=== PATIENT | female | born 1970 | race Caucasian/White ===

== ENCOUNTER 2020-12-26 09:13 | Outpatient (CLI) | payer OTHER, SELFPAY ==
--- NOTE | ~2020-12-26 | MM_ITS ---
EXAMINATION: MM screening antoni BI w braxton HISTORY: Screening mammogram TECHNIQUE: Craniocaudal and mediolateral oblique 3-D tomosynthesis images were obtained and synthetic 2-D images were generated. CAD analysis was submitted and interpreted. COMPARISON: 04/06/2019, 08/06/2017, 09/25/2015 bilateral digital screening mammogram examinations BREAST PARENCHYMAL COMPOSITION: There are scattered areas of fibroglandular density. FINDINGS: There is no evidence of suspicious mass, calcification, or architectural distortion to sugg est malignancy in either breast. There has been no suspicious interval change. IMPRESSION: 1. No mammographic evidence of malignancy. 2. Recommend routine screening mammography in one year. BI-RADS Category 1: Negative Reviewed, dictated and finalized at location A.
== END 2020-12-26 09:14 | disposition home or self-care (01) ==
LOC: ANHIMG 09:17
PROVIDERS: PCP Nurse Practitioner Adult Health; Visit Provider Physician Assistant
DX: Z12.31 Encounter for screening mammogram for malignant neoplasm of breast (principal)
CPT/HCPCS: 77063; 77067

== ENCOUNTER → 2021-01-01 08:37 | Outpatient (REF) | payer OTHER, SELFPAY | LOC: ANHLAB 08:37 | PROVIDERS: PCP Nurse Practitioner Adult Health; Visit Provider Nurse Practitioner | DX: R22.9 Localized swelling, mass and lump, unspecified (principal) | CPT/HCPCS: 87070; 87075; 87205; 88304 ==

== ENCOUNTER → 2021-06-27 09:21 | Outpatient (CLI) | payer OTHER, SELFPAY ==
[2021-06-27 18:23] LABS: SARS-CoV-2 RNA PCR Positive
== END ==
PROVIDERS: PCP Nurse Practitioner Adult Health; Visit Provider Nurse Practitioner Adult Health
DX: U07.1 COVID-19 (principal)
CPT/HCPCS: C9803; U0003; U0005

== ENCOUNTER 2022-09-11 09:22 | Outpatient (CLI) | payer OTHER, SELFPAY ==
--- NOTE | ~2022-09-11 | MM_ITS ---
EXAMINATION: MM screening antoni BI w braxton HISTORY: Screening mammogram TECHNIQUE: Craniocaudal and mediolateral oblique 3-D tomosynthesis images were obtained and synthetic 2-D images were generated. CAD analysis was submitted and interpreted. COMPARISON: 12/26/2020, 04/06/2019, 08/06/2017 bilateral screening mammogram examinations BREAST PARENCHYMAL COMPOSITION: There are scattered areas of fibroglandular density. FINDINGS: There is no evidence of suspicious mass, calcification, or architectural distortion to sugg est malignancy in either breast. There has been no suspicious interval change. IMPRESSION: 1. No mammographic evidence of malignancy. 2. Recommend routine screening mammography in one year. BI-RADS Category 1: Reviewed, dictated and finalized at location A.
== END 2022-09-11 09:23 | disposition home or self-care (01) ==
PROVIDERS: PCP Nurse Practitioner Adult Health; Visit Provider Nurse Practitioner Family
DX: Z12.31 Encounter for screening mammogram for malignant neoplasm of breast (principal)
CPT/HCPCS: 77063; 77067

== ENCOUNTER 2023-01-13 14:23 | Outpatient (CLI) | payer OTHER, SELFPAY ==
--- NOTE | ~2023-01-13 | MR_ITS ---
EXAMINATION: MR lumbar spine wo con DATE: 01/13/2023 15:00 INDICATION: Lumbar radiculopathy TECHNIQUE: Magnetic resonance imaging (MRI) of the lumbar spine was performed without intravenous con trast. Sequences included sagittal T2-weighted FSE, sagittal T2-weighted FS FSE, sagittal T1-weighted FSE, and axial T2-weighted FSE. COMPARISON: None FINDINGS: Alignment is normal. Vertebral body heights are normal. Normal marrow signal. Annular fissure and mi nimal disc height loss at L4-L5. The conus medullaris terminates at L1-L2. There is normal signal in the caudal spinal cord. Paravertebral soft tissues are unremarkable. The following disc levels are sp ecifically discussed: T12-L1: The disc does not extend beyond the endplate margin. There is mild right facet joint osteoart hritis. There is no neural foraminal stenosis. There is no central canal stenosis. L1-L2: The disc does not extend beyond the endplate margin. There is mild bilateral facet joint osteo arthritis. There is no neural foraminal stenosis. There is no central canal stenosis. L2-L3: Disc is mildly bulging. There is moderate bilateral facet joint osteoarthritis. There is mild bilateral neural foraminal stenosis. There is no central canal stenosis. L3-L4: Disc is mildly bulging. There is moderate bilateral facet joint osteoarthritis. There is mild bilateral neural foraminal stenosis. There is no central canal stenosis. L4-L5: Disc is mildly bulging. There is severe bilateral facet joint osteoarthritis. This includes a 9 x 8 x 5 mm synovial cyst arising from the medial aspect of the right facet joint and 12 x 5 x 4 mm) of the medial side of the left facet joint. There is mild to moderate neural foraminal stenosis. The re is moderate central canal stenosis due in part to mass effect from the right-sided synovial cyst. A synovial cyst also contributes to narrowing of the lateral recesses, left greater than right. L5-S1: Disc is mildly bulging. There is moderate right and severe left facet joint osteoarthritis. Th ere is mild bilateral neural foraminal stenosis. There is no central canal stenosis. IMPRESSION: 1. Mild lumbar spondylosis most notable for severe bilateral facet osteoarthritis with associated syn ovial cysts at L4-L5 which contributes to moderate central canal stenosis and narrowing of the latera l recesses, left greater than right. Reviewed, dictated and finalized at location A. IMPRESSION: 1. Mild lumbar spondylosis most notable for severe bilateral facet osteoarthrit is with associated synovial cysts at L4-L5 which contributes to moderate centra l canal stenosis and narrowing of the lateral recesses, left greater than right .
== END 2023-01-13 14:24 ==
LOC: MICIMG 14:24
PROVIDERS: PCP Nurse Practitioner Family
DX: M47.26 Other spondylosis with radiculopathy, lumbar region (principal)
CPT/HCPCS: 72148

== ENCOUNTER 2023-10-08 16:20 | Outpatient (CLI) | payer OTHER, SELFPAY ==
--- NOTE | ~2023-10-08 | MM_ITS ---
EXAMINATION: MM screening antoni BI w braxton HISTORY: Screening mammogram TECHNIQUE: Craniocaudal and mediolateral oblique 3-D tomosynthesis images were obtained and synthetic 2-D images were generated. CAD analysis was submitted and interpreted. COMPARISON: September 11, 2022, December 26, 2020 bilateral screening mammogram examinations BREAST PARENCHYMAL COMPOSITION: There are scattered areas of fibroglandular density. FINDINGS: There is no evidence of suspicious mass, calcification, or architectural distortion to sugg est malignancy in either breast. There has been no suspicious interval change. IMPRESSION: 1. No mammographic evidence of malignancy. 2. Recommend routine screening mammography in one year. BI-RADS Category 1: Negative Reviewed, dictated and finalized at location B.
== END 2023-10-08 16:21 | disposition home or self-care (01) ==
PROVIDERS: PCP Nurse Practitioner Adult Health; Visit Provider Nurse Practitioner Adult Health
DX: Z12.31 Encounter for screening mammogram for malignant neoplasm of breast (principal)
CPT/HCPCS: 77063; 77067

== ENCOUNTER 2024-04-12 12:50 | Outpatient (CLI) | payer OTHER, SELFPAY ==
[2024-04-12 19:06] LABS: Add Urine Microscopic? NO; Appearance Urine Clear (Clear); Bilirubin Urine Negative (Negative); Blood Urine Negative (Negative); Color Urine Yellow (Yellow); Glucose Urine UA Negative (Negative); Ketones Urine Negative (Negative); Leukocyte Esterase Ur Negative LEU/UL (Negative); Nitrate Urine Negative (Negative); Protein Urine Negative (Negative); Specific Grav Ur 1.018 (1.001-1.035); Urobilinogen Urine 0.2 mg/dL (<2.0)
== END 2024-04-12 12:51 | disposition home or self-care (01) ==
PROVIDERS: PCP Nurse Practitioner Adult Health; Visit Provider Nurse Practitioner Adult Health
DX: R39.9 Unspecified symptoms and signs involving the genitourinary system (principal)
CPT/HCPCS: 81003; 87086

== ENCOUNTER 2025-02-07 11:44 | Outpatient (CLI) | payer OTHER, SELFPAY ==
--- NOTE | ~2025-02-07 | MM_ITS ---
EXAMINATION: MM screening antoni BI w bratxon HISTORY: Screening TECHNIQUE: Craniocaudal and mediolateral oblique 3-D tomosynthesis images were obtained and synthetic 2-D images were generated. CAD analysis was submitted and interpreted. COMPARISON: Comparison to multiple prior studies sequentially, with oldest reviewed study dated , 09/25/2015 BREAST PARENCHYMAL COMPOSITION: There are scattered areas of fibroglandular density. FINDINGS: There is no evidence of suspicious mass, calcification, or architectural distortion to suggest malignancy in either breast. IMPRESSION: 1. No mammographic evidence of malignancy. 2. Recommend routine screening mammography in one year. BI-RADS Category 1: Negative Reviewed, dictated and finalized at location B.
--- OUTSIDE RECORDS SUMMARY | 2025-02-07 13:30 | XMS_ITS | Encounter Summary ---
Author Organization [employer] Address [address] [place] [address] Care Team Providers Care Consumer Credit Counselor Name Role Phone Juli Acuna MD Primary Care Provider +1- [phone] Encounter Details Date Type Department Care Team (Late st Contact Info) Description 04/08/2006 Outpatient [facility] Division of Neurology [address] [address] [address] Nu Whitley MD [address] [facility] [address] [place] [address] Social History Tobacco Use Types Packs/Day Years Used Date Smoking Tobacco: Never Assessed Comments Unknown Sex and Gender Information Value Date Recorded Sex Assigned at Not on file 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
--- OUTSIDE RECORDS SUMMARY | 2025-02-07 13:30 | XMS_ITS | Encounter Summary ---
Author Organization [employer] Address [address] [place] [address] Care Team Providers Care Insurance Claims Assistant Name Role Phone Juli Acuna MD Primary Care Provider +1- [phone] Encounter Details Date Type Department Care Team (Late st Contact Info) Description 01/24/2000 Outpatient Historical Division [facility] Neurology [address] [facility] [address] [address] Nu Whitley MD [address] [facility] [address] [place] [address] Social History Tobacco Use Types Packs/Day Years Used Date Smoking Tobacco: Never Assessed Comments Unknown Sex and Gender Information Value Date Recorded Sex Assigned at Not on file 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
--- OUTSIDE RECORDS SUMMARY | 2025-02-07 13:30 | XMS_ITS | Encounter Summary ---
Author Organization [facility] Address [address] [place] [address] Care Team Providers Care Senior Windows Administrator Name Role Phone Juli Acuna MD Primary Care Provider +1- [phone] Reason for Visit * Reason Comments Medication Refill Encounter Details Date Type Department Care Team (Late st Contact Info) Description 04/07/2019 Refill [facility] NEUROLOGY [facility] [address] [address] [facility] [address] [place] [address] Cedric Rowley MD [address] [facility] [address] [place] [address] Multiple sclerosis (CMS/HCC) Social History Tobacco Use Types Packs/Day Years Used Date Smoking Tobacco: Never Smokeless Tobacco: Never Alcohol Use Standard Drinks/Week Comments Yes 0 (1 standard drink = 0.6 oz pur e alcohol) Comments No Sex and Gender Information Value Date Recorded Sex Assigned at Not on file 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
--- OUTSIDE RECORDS SUMMARY | 2025-02-07 13:30 | XMS_ITS | Encounter Summary ---
Author Organization [employer] Address [address] [place] [address] Care Team Providers Care Warper Creeler Name Role Phone Juli Acuna MD Primary Care Provider +1- [phone] Encounter Details Date Type Department Care Team (Late st Contact Info) Description 08/29/2003 Outpatient [facility] Division of Neurology [address] [address] Nu Whitley MD [address] [facility] [address] [place] [address] Social History Tobacco Use Types Packs/Day Years Used Date Smoking Tobacco: Never Assessed Comments Unknown Sex and Gender Information Value Date Recorded Sex Assigned at Not on file 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
--- OUTSIDE RECORDS SUMMARY | 2025-02-07 13:30 | XMS_ITS | Encounter Summary ---
Author Organization [facility] Address [address] [place] [address] Care Team Providers Care Medical Technologist Microbiology Name Role Phone Juli Acuna MD Primary Care Provider +1- [phone] Encounter Details Date Type Department Care Team (Latest Contact Info) Description 06/17/1999 Outpatient Historical [facility] Whitley, Nu Toure MD [address] [facility] [address] [place] [address] Multiple sclerosis (CMS/HCC) (Primary Dx) Social History Tobacco Use Types Packs/Day Years Used Date Smoking Tobacco: Never Assessed Comments Unknown Sex and Gender Information Value Date Recorded Sex Assigned at Not on file 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
--- OUTSIDE RECORDS SUMMARY | 2025-02-07 13:30 | XMS_ITS | Encounter Summary ---
Author Organization [employer] Address [address] [place] [address] Care Team Providers Care Matrix Inspector Name Role Phone Juli Acuna MD Primary Care Provider +1- [phone] Encounter Details Date Type Department Care Team (Late st Contact Info) Description 07/03/2004 Outpatient [facility] Division of Neurology [address] [facility] [address] [address] Nu Whitley MD [address] [facility] [address] [place] [address] Social History Tobacco Use Types Packs/Day Years Used Date Smoking Tobacco: Never Assessed Comments Unknown Sex and Gender Information Value Date Recorded Sex Assigned at Not on file 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 [address] [place] [phone] PCP - General 05/18/15 documented as of this encounter
--- OUTSIDE RECORDS SUMMARY | 2025-02-07 13:30 | XMS_ITS | Encounter Summary ---
Author Organization [facility] Address [address] [place] [address] Care Team Providers Care Spd Manager Name Role Phone Juli Acuna MD Primary Care Provider +1- [phone] Encounter Details Date Type Department Care Team (Latest Contact Info) Description 08/29/2003 Outpatient Historical HIS [facility] Whitley, Nu Toure MD [address] [facility] [address] [place] [address] MULTIPLE SCLEROSIS (CMS/HCC) (Primary Dx) Social History Tobacco Use Types Packs/Day Years Used Date Smoking Tobacco: Never Assessed Comments Unknown Sex and Gender Information Value Date Recorded Sex Assigned at Not on file 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
--- OUTSIDE RECORDS SUMMARY | 2025-02-07 13:30 | XMS_ITS | Encounter Summary ---
Author Organization [facility] Address [address] [place] [address] Care Team Providers Care Photography Intern Name Role Phone Juli Acuna MD Primary Care Provider +1- [phone] Encounter Details Date Type Department Care Team (Latest Contact Info) Description 04/06/2008 Outpatient Historical HIS [facility] Whitley, Nu Toure MD [address] [facility] [address] [place] [address] Multiple Sclerosis (CMS/[facility]) Social History Tobacco Use Types Packs/Day Years Used Date Smoking Tobacco: Never Assessed Comments Unknown Sex and Gender Information Value Date Recorded Sex Assigned at Not on file Legal Sex Female 2:52 AM BINDING STITCHER Gender Identity Not on file Sexual Orientation Not on file documented as of this encounter Plan of Treatment Not on file documented as of this encounter Procedures Procedure Name Priority Date/Time Associated Diagnosis Comments CBC WITH DIFFERENTIAL Routine 04/06/2008 3:12 PM BINDING STITCHER COMPREHENSIVE METABOLIC PANEL Routine 04/06/2008 3:12 PM BINDING STITCHER documented in this encounter Results * COMPREHENSIVE METABOLIC PANEL (04/06/2008 3:12 PM BINDING STITCHER) TOTAL PROTEIN 7.7 6.3 - 8.6 g/dL [facility] POTASSIUM 4.1 3.5 - 4.9 mmol/L [facility] Comment: Moderate hemolysis present. Can cause significant falsely elevated result. Clinical judgement necessary. Redraw if indicated. GLUCOSE 87 65 - 99 mg/dL [facility] AST 23 12 - 32 U/L [facility] Comment: Hemolyzed: Result may be falsely elevated. BUN 15 6 - 20 mg/dL [facility] CALCIUM 9.6 8.6 - 10.2 mg/dL [facility] CHLORIDE 103 96 - 108 mmol/L [facility] ALBUMIN 4.6 3.4 - 4.8 g/dL [facility] CREATININE 0.55 0.51 - 0.95 mg/dL [facility] SODIUM 139 135 - 145 mmol/L [facility] ALT 16 0 - 31 U/L [facility] ALKALINE PHOSPHATASE 82 35 - 104 U/L [facility] BILIRUBIN TOTAL 0.5 0.2 - 1.0 mg/dL [facility] CO2 24 22 - 30 mmol/L [facility] GFR, >60 >=60 mL/min/1.7 sq meter [facility] GFR >60 >=60 mL/min/1.7 sq meter [facility] Comment: Modification of Diet in Renal Disease (MDRD) study formula. Estimated GFR rate interpretative information for both Americans and non- Americans is available on the [facility] at: [email or web address] Select: Lab Policies and Procedures Select: Reference Ranges - GFR Blood specimen (specimen) 04/06/2008 3:12 PM BINDING STITCHER 04/06/2008 3:41 PM BINDING STITCHER us Nu Whitley MD CHEMISTRY ORDERABLES Edited INTERFACE SYSTEM Refer to clinic/hospital department [facility] CLIA# [id number] [address] [facility] [place] [address] * (ABNORMAL) CBC WITH DIFFERENTIAL (04/06/2008 3:12 PM BINDING STITCHER) MPV 12.6(H) 9.3 - 12.4 fL [facility] HEMATOCRIT 40.0 35.5 - 44.0 % [facility] RDW-STDEV 42.0 37.1 - 48.7 fL [facility] RBC 4.69 3.90 - 4.90 M/uL [facility] MCHC 34.3 31.5 - 35.5 % [facility] MCV 85.3 82.0 - 99.0 fL [facility] PLATELETS 185 140 - 350 K/uL [facility] HEMOGLOBIN 13.7 11.8 - 14.8 g/dL [facility] RDW 13.7 11.5 - 14.5 % [facility] WBC 7.0 4.0 - 9.8 K/uL [facility] MCH 29.2 27.2 - 32.6 pg [facility] NEUTROPHIL ABSOLUTE 5.34 1.90 - 7.00 K/uL [facility] EOSINOPHILS 0 0 - 7 % [facility] EOSINOPHIL ABSOLUTE 0.02 0.00 - 0.70 K/uL [facility] LYMPHOCYTES 16 16 - 45 % [facility] LYMPHOCYTE ABSOLUTE 1.14 0.70 - 4.50 K/uL [facility] BASOPHILS 0 0 - 2 % [facility] BASOPHILS ABSOLUTE 0.02 0.00 - 0.20 K/uL [facility] MONOCYTES 6 3 - 13 % [facility] MONOCYTE ABSOLUTE 0.43 0.10 - 1.30 K/uL [facility] NEUTROPHILS 77(H) 45 - 70 % [facility] Blood specimen (specimen) 04/06/2008 3:12 PM BINDING STITCHER 04/06/2008 3:40 PM BINDING STITCHER us Nu Whitley MD HEMATOLOGY ORDERABLES Edited INTERFACE SYSTEM Refer to clinic/hospital department [facility] CLIA# [id number] [address] [place] [address] documented in this encounter Visit Diagnoses Diagnosis Multiple sclerosis (CMS/HCC) Multiple sclerosis documented in this encounter Care Teams Photography Intern Relationship Specialty Start Date End Date Juli Acuna MD [address] [address] PCP - General 05/18/15 documented as of this encounter
--- OUTSIDE RECORDS SUMMARY | 2025-02-07 13:30 | XMS_ITS | Encounter Summary ---
Author Organization [employer] Address [address] [place] [address] Care Team Providers Care Die Technician Name Role Phone Juli Acuna MD Primary Care Provider +1- [phone] Encounter Details Date Type Department Care Team (Late st Contact Info) Description 01/26/2001 Outpatient [facility] Division of Neurology [address] [facility] [place] [facility] [address] [address] Nu Whitley MD [address] [facility] [address] [place] [address] Social History Tobacco Use Types Packs/Day Years Used Date Smoking Tobacco: Never Assessed Comments Unknown Sex and Gender Information Value Date Recorded Sex Assigned at Not on file 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
--- OUTSIDE RECORDS SUMMARY | 2025-02-07 13:30 | XMS_ITS | Clinical Summary ---
Author Organization [facility] Address [address] [place] [address] Care Team Providers Care Fitness Sales Consultant Name Role Phone Kera Cedeño Primary Care Provider [phone] Allergies No known active allergies Medications ALPRAZolam 0.25 MG tablet Take 0.25 mg by mouth 2 (two) times daily as needed. Active spironolactone- hydroCHLOROthia zide 25-25 MG tablet Take 1 tablet by mouth daily. 07/16/2020 Active tiZANidine 4 MG tablet Take 4 mg by mouth daily. 07/16/2020 Active sertraline 50 MG tablet Take 50 mg by mouth daily. Active phentermine 37.5 MG tablet Take 37.5 mg by mouth daily. Active oxybutynin XL 10 MG 24 hr tablet Take 10 mg by mouth daily. 04/16/2020 Active lisinopril 20 MG tablet Take 20 mg by mouth daily. 02/23/2020 Active Dalfampridine 10 MG TABLET SR 12 HR Take 10 mg by mouth daily. 09/12/2019 Active Diroximel Fumarate (VUMERITY) 231 MG CAPSULE DELAYED RELEASE Take by mouth 2 (two) times a day. 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 Betaseron: 08/1995 -08/2014 2. Plegridy: 08/2014-05/2020 3. Vumerity: 06/2020- Dyslipidemia 10/13/2016 Overview (09/05/2020): Last Assessment & Plan: Encouraged to watch diet and to increase exercise. 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 Will continue current medications and lifestyle modifications. Hypercholesterolemia 03/10/2013 Multiple sclerosis ([facility]) 2013 Overview (09/05/2020): MS Medication History RRMS DX: August 1995 1. Betaseron: 08/1995 -08/2014 2. Plegridy: 08/2014- AMPYRA start date: 01/11/2011 MS Medication History: RRMS DX: August 1995 1. Betaseron: 08/1995 -08/2014 2. Plegridy: 08/2014- present Immunizations Immunization Administration Dates Next Due MODERNA COVID-19 (12+) MRNA, LNP-S, PF, 100 MCG/ 0.5 ML DOSE 08/20/2020,07/18/2020 Family History Medical History Relation Comments No Known Problems Father Diabetes Mother Relation Status Comments Father Alive Mother Alive Social History Tobacco Use Types Packs/Day Years Used Date Smoking Tobacco: Never Passive Smoke Exposure: Past Smokeless Tobacco: Never Alcohol Use Standard Drinks/Week Comments Yes 0 (1 standard drink = 0.6 oz pur e alcohol) sociaLLY PHQ-2 Answer Date Recorded Patient Health Questionnaire-2 Score 0 07/22/2022 Comments No Sex and Gender Information Value Date Recorded Sex Assigned at Not on file Legal Sex Female 2:55 PM CDT Gender Identity Not on file Sexual Orientation Not on file Last Filed Vital Signs Vital Sign Reading Time Taken Comments Blood Pressure 116/81 07/22/2022 9:01 AM SYSTEMS ACCOUNTANT Pulse 85 07/22/2022 9:01 AM SYSTEMS ACCOUNTANT Temperature 36.9 C (98.5 F) 07/22/2022 9:01 AM SYSTEMS ACCOUNTANT Respiratory Rate 18 07/22/2022 9:01 AM SYSTEMS ACCOUNTANT Oxygen Saturation 100% 07/22/2022 9:01 AM SYSTEMS ACCOUNTANT Inhaled Oxygen Concentration - - Weight 88.5 kg (195 lb) 07/22/2022 9:01 AM SYSTEMS ACCOUNTANT Height 172.7 cm (5' 8) 07/22/2022 9:01 AM SYSTEMS ACCOUNTANT Body Mass Index 29.65 07/22/2022 9:01 AM SYSTEMS ACCOUNTANT Plan of Treatment Health Maintenance Due Date Last Done Comments Colorectal Cancer Screening Colonoscopy (10 Years) 1968 Hepatitis C 02/10/1986 DTaP, Tdap and Td Vaccines (1 - Tdap) 02/10/1987 Hepatitis B Vaccines (1 of 3 - 19+ 3-dose series) 02/10/1987 Pneumococcal Vaccine: 50+ Years (1 of 1 - PCV) 02/10/2018 Zoster Vaccines (1 of 2) 02/10/2018 Mammogram Screening 12/26/2022 12/26/2020, 2 Annual Physical 07/22/2023 07/22/2022, 09/05/2020 COVID-19 Vaccine ( season) 2025 05/02/2021, 08/20/2020, 07/18/2020 Cervical Cancer Screening Pap Smear (Age 30 to 64) Every 3 Years 07/22/2025 07/22/2022, 09/05/2020, 09/09/2018, Additional history exists Cervical Cancer Screening Pap with HPV Testing (Age 30 to 64) Every 5 Years 07/22/2027 07/22/2022, 05/01/2015, 11/16/2012 Cervical Cancer Screening with HPV 07/22/2027 Meningococcal B Vaccine Aged Out No l onger eligible based on patient's age to complete this topic Meningococcal Vaccine Aged Out No aravind sunny eligible based on patient's age to complete this topic RSV Immunizations Under 20 Months Aged Out No longer eligible based on patient's age to complete this topic Procedures Procedure Name Priority Date/Time Associated Diagnosis Comments THINPREP PAP W AGE BASED SCREENING PROTOCOLS Routine 07/22/2022 9:44 AM SYSTEMS ACCOUNTANT Cervical cancer screening MAMMOGRAM GENERIC (SCAN ORDER) 12/26/2020 from Last 3 Months or Most Recently Relevant to Health Maintenance Results * THINPREP PAP W AGE BASED SCREENING (QUEST ONLY) (07/22/2022 9:44 AM SYSTEMS ACCOUNTANT) Comment: [facility] [place] Comment: This order for age-based cervical cancer and STI screening follows ACOG guidelines(PB 168, 140, JFX444). See individual assays for performing site location. CLINICAL INFORMATION: None given [facility] [place] Clinical Information: NONE GIVEN [facility] Date of Last Pap NONE [place] Previous Biopsy? NONE [place] SOURCE (QST) Endocervix [facility] [place] STATEMENT OF ADEQUACY: [facility] [place] Comment: Satisfactory for evaluation. Endocervical/transformation zone component present. Age and/or menstrual status not provided PAP INTERPRETATION/RES ULTS Negative for intraepithelial lesion or malignancy. [place] COMMENT: This Pap test has been evaluated with computer assisted technology. [facility] [place] MINE EQUIPMENT DESIGN ENGINEER [place] Comment: MMW, CT(ASCP) CT screening location: [place] [address] [address] [place] [address] COMMENT: [facility] [place] Comment: EXPLANATORY NOTE: The Pap is a screening test for cervical cancer. It is not a diagnostic test and is subject to false negative and false positive results. It is most reliable when a satisfactory sample, regularly obtained, is submitted with relevant clinical findings and history, and when the Pap result is evaluated along with historic and current clinical information. HPV MRNA E6/E7 Not Detected Not Detected [facility] [employer] [facility] Comment: Methodology: Dock Attendant-Mediated Amplification This assay detects E6/E7 viral messenger RNA (mRNA) from 14 high-risk HPV types (16,18,31,33,35,39,45,51,52,56,58,59,66,68). Cervical sources are required for HPV testing. If a vaginal source from a patient who has had a total hysterectomy with removal of cervix was submitted, please contact the testing laboratory for alternative testing options. For additional information, please refer to http://education.Brandark/faq/XLR134y1 (This link if provided for information/ educational purposes only.) 07/22/2022 9:44 AM SYSTEMS ACCOUNTANT 07/23/2022 1:58 AM SYSTEMS ACCOUNTANT Narrative Resulting Agency Comment Performing Organization Information: Site ID: [id number] Name: [facility] Address: [facility] [place] [address] Director: Manoj Witt MD Site ID: [id number] [facility]: [facility] Address: [facility] [address] Director: Manoj Witt Kera LI PATHOLOGY/CYTOLOGY ORDERABLE S Final Result [employer] [facility] [employer] [address], [employer] [address] [place] [place], [place] [address] * MAMMOGRAM GENERIC (12/26/2020) Anatomical Region Laterality Modality Other 12/26/2020 Narrative 12/26/2020 Ordered by an unspecified provider. us Documents Scanned SCANNING Final Result from Last 3 Months or Most Recently Relevant to Health Maintenance Insurance [employer] OPEN ACCESS [facility] Care Teams Fitness Sales Consultant Relationship Specialty Start Date [place] [address] [place] [address] PCP - General PHYSICIAN INTERNET MARKETING STRATEGIST 09/05/20
--- OUTSIDE RECORDS SUMMARY | 2025-02-07 13:30 | XMS_ITS | Encounter Summary ---
Author Organization [facility] Address [address] [place] [address] Care Team Providers Care Oyster Worker Name Role Phone Juli Acuna MD Primary Care Provider +1- [phone] Encounter Details Date Type Department Care Team (Late st Contact Info) Description 2002 Outpatient Historical HIS MRI DEPT Nu Whitley MD [address] [facility] [address] [place] [phone] MULTIPLE SCLEROSIS (CMS/HCC) (Primary Dx) Social History Tobacco Use Types Packs/Day Years Used Date Smoking Tobacco: Never Assessed Comments Unknown Sex and Gender Information Value Date Recorded Sex Assigned at Not on file Legal Sex Female 2:52 AM SLEEP TECH Gender Identity Not on file Sexual Orientation Not on file documented as of this encounter Plan of Treatment Not on file documented as of this encounter Visit Diagnoses Diagnosis Multiple sclerosis (CMS/HCC)- Primary Multiple sclerosis documented in this encounter Care Teams Oyster Worker Relationship Specialty Start Date End Date Juli Acuna MD [address] [facility] [address] [place] [phone] PCP - General 05/18/15 documented as of this encounter
--- OUTSIDE RECORDS SUMMARY | 2025-02-07 13:30 | XMS_ITS | Encounter Summary ---
Author Organization [employer] [facility] Address [address] [place] [address] Care Team Providers Care Lead Developer Name Role Phone Juli Acuna MD Primary Care Provider +1- [phone] Encounter Details Date Type Department Care Team (Latest Contact Info) Description 10/10/1998 Outpatient Historical HIS [facility] Whitley, Nu Toure MD [address] [facility] [address] [place] [address] Encounter for long-term (current) use of other medications (Primary Dx) Social History Tobacco Use Types Packs/Day Years Used Date Smoking Tobacco: Never Assessed Comments Unknown Sex and Gender Information Value Date Recorded Sex Assigned at Not on file Legal Sex Female 2:52 AM BILLING COLLECTIONS SPECIALIST Gender Identity Not on file Sexual Orientation Not on file documented as of this encounter Plan of Treatment Not on file documented as of this encounter Visit Diagnoses Diagnosis Encounter for long-term (current) use of other medications- Primary documented in this encounter Care Teams Lead Developer Relationship Specialty Start Date End Date Juli Acuna MD [address] [address] [place] [phone] PCP - General 05/18/15 documented as of this encounter
--- OUTSIDE RECORDS SUMMARY | 2025-02-07 13:30 | XMS_ITS | Encounter Summary ---
Author Organization [facility] Address [address] [place] [address] Care Team Providers Care Structural Steel Worker Name Role Phone Juli Acuna MD Primary Care Provider +1- [phone] Encounter Details Date Type Department Care Team (Late st Contact Info) Description 02/26/2000 Outpatient Historical HIS [facility] Whitley, Nu Toure MD [address] [facility] [address] [place] [address] Social History Tobacco Use Types Packs/Day Years Used Date Smoking Tobacco: Never Assessed Comments Unknown Sex and Gender Information Value Date Recorded Sex Assigned at Not on file Legal Sex Female 2:52 AM 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
--- OUTSIDE RECORDS SUMMARY | 2025-02-07 13:30 | XMS_ITS | Clinical Summary ---
Author Organization [facility] Address [address] [place] [address] Phone Care Team Providers Care Telecommunication Operator Name Role Phone Juli Acuna MD Primary Care Provider +1- [phone] Allergies No known active allergies Medications lisinopril (PRINIVIL) 20 mg Oral tablet Take 20 mg by mouth daily. Active spironolacton- hydrochlorothi az (ALDACTAZIDE) 25-25 mg Oral Tab Take 1 Tab by mouth daily. Active sertraline (ZOLOFT) 50 mg tablet Take 50 mg by mouth daily. Active tiZANidine (ZANAFLEX) 4 mg TabletIndicati ons:Multiple sclerosis (CMS/HCC) Take 1 Tablet (4 mg) by mouth 3 times daily. 270 Tablet 3 8 Active diazePAM (VALIUM) 10 mg tablet Take 1 Tablet (10 mg) by mouth see administration instructions. 2 Tablet 8 Active dalfampridine (AMPYRA) 10 mg Extended Release 12 hour tabletIndicati ons:Multiple sclerosis (CMS/HCC) Take one tab (10 mg) po BID. May take with or without food. Swallow whole, Do Not Cut or Crush, Store at Room Temp. 180 Tablet 2 8 Active peginterferon beta-1a (PLEGRIDY) 125 mcg/0.5 mL Pen Injector Inject 125 mcg by subcutaneous injection every 2 weeks. 6 Syringe 8 Active ALPRAZolam (XANAX) 0.25 mg tabletIndicati ons:Multiple sclerosis (CMS/HCC) TAKE 1 TABLET BY MOUTH EVERY 6 HOURS NEEDED FOR ANXIETY. 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 Betaseron: 08/1995 -08/2014 2. Plegridy: 08/2014- AMPYRA start date: 01/11/2011 Encounters Date Type Department Care Team Description 01/03/2025 External Device Data ST[facility] ABSTRACTION Provider, Abstract 12/14/2024 External Device Data [facility] ABSTRACTION Provider, Abstract 12/14/2024 External Device Data [facility] ABSTRACTION Provider, Abstract 12/14/2024 External Device Data [facility] ABSTRACTION Provider, Abstract 11/16/2024 External Device Data [facility] ABSTRACTION Provider, Abstract from Last 3 Months Social History Tobacco Use Types Packs/Day Years Used Date Smoking Tobacco: Never Smokeless Tobacco: Never Alcohol Use Standard Drinks/Week Comments Yes 0 (1 standard drink = 0.6 oz pur e alcohol) Comments No Sex and Gender Information Value Date Recorded Sex Assigned at Not on file Legal Sex Female 2:52 AM GANG KNIFE FISH CHOPPER Gender Identity Not on file Sexual Orientation Not on file Last Filed Vital Signs Vital Sign Reading Time Taken Comments Blood Pressure 120/88 01/12/2018 12:47 PM CDT Pulse 62 01/12/2018 12:47 PM CDT Temperature - - Respiratory Rate - - Oxygen Saturation - - Inhaled Oxygen Concentration - - Weight 78.9 kg (174 lb) 01/12/2018 12:47 PM CDT Height 172.7 cm (5' 8) 01/12/2018 12:47 PM CDT Body Mass Index 26.46 01/12/2018 12:47 PM CDT Plan of Treatment Health Maintenance Due Date Last Done Comments DTAP/TDAP/TD VACCINES (1 - Tdap) 02/10/1987 HEPATITIS B VACCINES (1 of 3 - 19+ 3-dose series) 01/30 HPV/Cotest (21-29) 02/10/1989 CERVICAL CANCER SCREENING 02/10/1998 HPV/Cotest (30-65) 02/10/1998 PAP SMEAR 02/10/1998 BREAST CANCER SCREENING 2008 COLORECTAL SCREENING 02/10/2013 Colorectal Cancer Screening 02/10/2013 FIT-DNA Q 3 years 02/10/2013 FIT/FOBT Q 1 year 02/10/2013 Flex Sig/CT Colonography Q 5 years 02/10/2013 ZOSTER VACCINE (1 of 2) 02/10/2018 INFLUENZA VACCINE (#1) 2024 Insurance [employer] OPEN ACCESS [facility] OPEN ACCESS HMO Care Teams Telecommunication Operator Relationship Specialty Start Date End Date Juli Acuna MD [address] [address] [facility] - General 05/18/15
--- OUTSIDE RECORDS SUMMARY | 2025-02-07 13:30 | XMS_ITS | Encounter Summary ---
Author Organization [facility] Address [address] [place] [address] Care Team Providers Care Forms Designer Name Role Phone Juli Acuna MD Primary Care Provider +1- [phone] Encounter Details Date Type Department Care Team (Latest Contact Info) Description 04/06/2008 Outpatient Historical HIS [facility] BLDG Conversion, History Unspecified Essential Hypertension Social History Tobacco Use Types Packs/Day Years Used Date Smoking Tobacco: Never Assessed Comments Unknown Sex and Gender Information Value Date Recorded Sex Assigned at Not on file Legal Sex Female 2:52 AM HIGH SCHOOL SOCIAL STUDIES TUTOR Gender Identity Not on file Sexual Orientation Not on file documented as of this encounter Plan of Treatment Not on file documented as of this encounter Procedures Procedure Name Priority Date/Time Associated Diagnosis Comments ALDOSTERONE Routine 04/06/2008 3:14 PM HIGH SCHOOL SOCIAL STUDIES TUTOR documented in this encounter Results * ALDOSTERONE (04/06/2008 3:14 PM HIGH SCHOOL SOCIAL STUDIES TUTOR) ALDOSTERONE 1 ng/dL [facility] Comment: Adult Reference Ranges for Aldosterone, LC/MS/MS: Upright 8:00-10:00 am < or = 28 ng/dL Upright 4:00-6:00 pm < or = 21 ng/dL Supine 8:00-10:00 am 3-16 ng/dL Lab test performed by: [facility] [address] [place] [address] Volodymyr LOJA MD Blood specimen (specimen) 04/06/2008 3:14 PM HIGH SCHOOL SOCIAL STUDIES TUTOR 04/06/2008 3:41 PM HIGH SCHOOL SOCIAL STUDIES TUTOR Narrative INTERFACE SYSTEM - 04/11/2008 6:56 PM HIGH SCHOOL SOCIAL STUDIES TUTOR fax result to dr kincaid [phone] us History Conversion CHEMISTRY ORDERABLES Final Re sult INTERFACE SYSTEM Refer to clinic/hospital department [facility] CLIA# [id number] [address] [place] [address] documented in this encounter Visit Diagnoses Diagnosis Unspecified essential hypertension documented in this encounter Care Teams Forms Designer Relationship Specialty Start Date End Date Juli Acuna MD [address] [address] PCP - General 05/18/15 documented as of this encounter
--- OUTSIDE RECORDS SUMMARY | 2025-02-07 13:30 | XMS_ITS | Encounter Summary ---
Author Organization [facility] Address [address] [place] [address] Care Team Providers Care Telephonic Rn Name Role Phone Juli Acuna MD Primary Care Provider +1- [phone] Encounter Details Date Type Department Care Team (Latest Contact Info) Description 02/26/2000 Outpatient Historical HIS [facility] Whitley, Nu Toure MD [address] [facility] [address] [place] [address] Encounter for long-term (current) use of other medications (Primary Dx) Social History Tobacco Use Types Packs/Day Years Used Date Smoking Tobacco: Never Assessed Comments Unknown Sex and Gender Information Value Date Recorded Sex Assigned at Not on file Legal Sex Female 2:52 AM RESIDENTIAL SUBCONTRACTOR Gender Identity Not on file Sexual Orientation Not on file documented as of this encounter Plan of Treatment Not on file documented as of this encounter Visit Diagnoses Diagnosis Encounter for long-term (current) use of other medications- Primary documented in this encounter Care Teams Telephonic Rn Relationship Specialty Start Date End Date Juli Acuna MD [address] [address] [place] [phone] PCP - General 05/18/15 documented as of this encounter
--- OUTSIDE RECORDS SUMMARY | 2025-02-07 13:30 | XMS_ITS | Encounter Summary ---
Author Organization [facility] Address [address] [place] [address] Care Team Providers Care Director Recreation Center Name Role Phone Juli Acuna MD Primary Care Provider +1- [phone] Encounter Details Date Type Department Care Team (Late st Contact Info) Description 03/16/2007 Outpatient [facility] Division of Neurology [address] [address] [address] Nu Whitley MD [address] 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
--- OUTSIDE RECORDS SUMMARY | 2025-02-07 13:30 | XMS_ITS | Encounter Summary ---
Author Organization [facility] Address [address] [place] [address] Care Team Providers Care Antenna Design Engineer Name Role Phone Juli Acuna MD Primary Care Provider +1- [phone] Encounter Details Date Type Department Care Team (Late st Contact Info) Description 01/21/2005 Outpatient [facility] Division [facility]rology [address] [facility] [address] [address] Nu Whitley MD [address] [facility] [address] [place] [address] Social History Tobacco Use Types Packs/Day Years Used Date Smoking Tobacco: Never Assessed Comments Unknown Sex and Gender Information Value Date Recorded Sex Assigned at Not on file Legal Sex Female 2:52 AM COMPUTER SYSTEMS CONSULTANT Gender Identity Not on file Sexual Orientation Not on file documented as of this encounter Plan of Treatment Not on file documented as of this encounter Visit Diagnoses Not on filedocumented in this encounter Care Teams Antenna Design Engineer Relationship Specialty Start Date End Date Juli Acuna MD [address] [address] [place] [phone] PCP - General 05/18/15 documented as of this encounter
--- OUTSIDE RECORDS SUMMARY | 2025-02-07 13:30 | XMS_ITS | Encounter Summary ---
Author Organization [facility] [facility] Address 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
--- OUTSIDE RECORDS SUMMARY | 2025-02-07 13:30 | XMS_ITS | Encounter Summary ---
Author Organization [employer] Address [address] [place] [address] Care Team Providers Care Log Processor Operator Name Role Phone Juli Acuna MD Primary Care Provider +1- [phone] Encounter Details Date Type Department Care Team (Late st Contact Info) Description 08/06/2004 Outpatient Historical HIS MRI DEPT Nu Whitley MD [address] [facility] [address] [place] [address] MULTIPLE SCLEROSIS (CMS/HCC) (Primary Dx) Social History Tobacco Use Types Packs/Day Years Used Date Smoking Tobacco: Never Assessed Comments Unknown Sex and Gender Information Value Date Recorded Sex Assigned at Not on file Legal Sex Female 2:52 AM MOLDER SWEEP Gender Identity Not on file Sexual Orientation Not on file documented as of this encounter Plan of Treatment Not on file documented as of this encounter Visit Diagnoses Diagnosis Multiple sclerosis (CMS/HCC)- Primary Multiple sclerosis documented in this encounter Care Teams Log Processor Operator Relationship Specialty Start Date End Date Juli Acuna MD [address] [facility] [address] [place] [phone] PCP - General 05/18/15 documented as of this encounter
--- OUTSIDE RECORDS SUMMARY | 2025-02-07 13:30 | XMS_ITS | Encounter Summary ---
Author Organization [employer] Address [address] [place] [address] Care Team Providers Care Woodworking Shop Laborer Name Role Phone Juli Acuna MD Primary Care Provider +1- [phone] Encounter Details Date Type Department Care Team (Late st Contact Info) Description 2002 Outpatient [facility] Division of Neurology [address] [facility] [address] [address] Nu Whitley MD [address] [facility] [address] [place] [address] Social History Tobacco Use Types Packs/Day Years Used Date Smoking Tobacco: Never Assessed Comments Unknown Sex and Gender Information Value Date Recorded Sex Assigned at Not on file Legal Sex Female 2:52 AM ON CALL Gender Identity Not on file Sexual Orientation Not on file documented as of this encounter Plan of Treatment Not on file documented as of this encounter Visit Diagnoses Not on filedocumented in this encounter Care Teams Woodworking Shop Laborer Relationship Specialty Start Date End Date Juli Acuna MD [address] [facility] [address] [place] [phone] PCP - General 05/18/15 documented as of this encounter
--- OUTSIDE RECORDS SUMMARY | 2025-02-07 13:30 | XMS_ITS | Encounter Summary ---
Author Organization [facility] Address [address] [place] [address] Care Team Providers Care Top Collar Baster Name Role Phone Juli Acuna MD Primary Care Provider +1- [phone] Reason for Visit * Reason Comments Medication Refill Encounter Details Date Type Department Care Team (Late st Contact Info) Description 07/07/2018 Refill [facility] - [facility] [id number] [facility] [address] [place] [address] Cedric Rowley MD [address] [facility] [address] [place] [address] Multiple sclerosis (CMS/HCC) Social History Tobacco Use Types Packs/Day Years Used Date Smoking Tobacco: Never Smokeless Tobacco: Never Alcohol Use Standard Drinks/Week Comments Yes 0 (1 standard drink = 0.6 oz pur e alcohol) Comments No Sex and Gender Information Value Date Recorded Sex Assigned at Not on file Legal Sex Female 2:52 AM GROUND OPERATIONS SUPERVISOR Gender Identity Not on file Sexual Orientation Not on file documented as of this encounter Miscellaneous Notes * Telephone Encounter - Yani Jimenez - 07/07/2018 11:24 AM CST Last ov : 12/2017 ND OPERATIONS SUPERVISOR documented in this encounter Plan of Treatment Not on file documented as of this encounter Visit Diagnoses Diagnosis Multiple sclerosis (CMS/HCC) Multiple sclerosis documented in this encounter Care Teams Top Collar Baster Relationship Specialty Start Date End Date Juli Acuna MD [address] [address] PCP - General 05/18/15 documented as of this encounter
--- OUTSIDE RECORDS SUMMARY | 2025-02-07 13:30 | XMS_ITS | Encounter Summary ---
Author Organization [employer] [facility] Address [address] [place] [address] Care Team Providers Care Compliance Engineer Products Name Role Phone Juli Acuna MD Primary Care Provider +1- [phone] Encounter Details Date Type Department Care Team (Latest Contact Info) Description 05/07/1999 Outpatient Historical [facility] Whitley, Nu Toure MD [address] [facility] [address] [place] [address] Encounter for long-term (current) use of other medications (Primary Dx) Social History Tobacco Use Types Packs/Day Years Used Date Smoking Tobacco: Never Assessed Comments Unknown Sex and Gender Information Value Date Recorded Sex Assigned at Not on file Legal Sex Female 2:52 AM AVIONICS SYSTEMS TECHNICIAN Gender Identity Not on file Sexual Orientation Not on file documented as of this encounter Plan of Treatment Not on file documented as of this encounter Visit Diagnoses Diagnosis Encounter for long-term (current) use of other medications- Primary documented in this encounter Care Teams Compliance Engineer Products Relationship Specialty Start Date End Date Juli Acuna MD [address] [facility] [address] [place] [phone] PCP - General 05/18/15 documented as of this encounter
--- OUTSIDE RECORDS SUMMARY | 2025-02-07 13:30 | XMS_ITS | Encounter Summary ---
Author Organization [employer] [facility] Address [address] [place] [address] Care Team Providers Care Meal Packer Name Role Phone Juli Acuna MD Primary Care Provider +1- [phone] Encounter Details Date Type Department Care Team (Latest Contact Info) Description 07/22/2005 Outpatient Historical HIS [facility] Whitley, Nu Toure MD [address] [facility] [address] [place] [address] AFTERCARE [facility] USE MEDICATN (Primary Dx) Social History Tobacco Use Types Packs/Day Years Used Date Smoking Tobacco: Never Assessed Comments Unknown Sex and Gender Information Value Date Recorded Sex Assigned at Not on file Legal Sex Female 2:52 AM ASP WEB DEVELOPER Gender Identity Not on file Sexual Orientation Not on file documented as of this encounter Plan of Treatment Not on file documented as of this encounter Procedures Procedure Name Priority Date/Time Associated Diagnosis Comments CBC WITH DIFFERENTIAL Routine 07/22/2005 12:29 PM ASP WEB DEVELOPER CBC WITH DIFFERENTIAL Routine 07/22/2005 12:29 PM ASP WEB DEVELOPER COMPREHENSIVE METABOLIC PANEL Routine 07/22/2005 12:29 PM ASP WEB DEVELOPER documented in this encounter Results * (ABNORMAL) CBC WITH DIFFERENTIAL (07/22/2005 12:29 PM ASP WEB DEVELOPER) NEUTROPHILS 74(H) 45 - 70 % INTERFAC E SYSTEM LYMPHOCYTES 20 16 - 45 % INTERFAC E SYSTEM MONOCYTES 6 3 - 13 % INTERFACE SYSTEM EOSINOPHILS 1 0 - 7 % INTERFAC E SYSTEM BASOPHILS 0 0 - 2 % INTERFACE SYSTEM NEUTROPHIL ABSOLUTE 4.55 1.90 - 7.00 K/uL INTERFACE SYSTEM LYMPHOCYTE ABSOLUTE 1.23 0.70 - 4.50 K/uL INTERFACE SYSTEM MONOCYTE ABSOLUTE 0.34 0.10 - 1.30 K/uL INTERFACE SYSTEM EOSINOPHIL ABSOLUTE 0.04 0.00 - 0.70 K/uL INTERFACE SYSTEM BASOPHILS ABSOLUTE 0.02 0.00 - 0.20 K/uL INTERFACE SYSTEM 07/22/2005 12:2 9 PM ASP WEB DEVELOPER Nu Whitley MD HEMATOLOGY ORDERABLES Final R esult Performing Organization Address City/[facility] de Phone Number INTERFACE SYSTEM Refer to clinic/hospital department * CBC WITH DIFFERENTIAL (07/22/2005 12:29 PM ASP WEB DEVELOPER) WBC 6.2 4.0 - 9.8 K/uL INTERFACE SYSTEM RBC 4.87 3.90 - 4.90 M/uL INTERFACE SYSTEM HEMOGLOBIN 13.3 11.8 - 14.8 g/dL INTERFACE SYSTEM HEMATOCRIT 40.1 35.5 - 44.0 % INTERFACE SYSTEM MCV 82.3 82.0 - 99.0 fL INTERFACE SYSTEM MCH 27.3 27.2 - 32.6 pg INTERFACE SYSTEM MCHC 33.2 31.5 - 35.5 % INTERFACE SYSTEM RDW 14.1 11.5 - 14.5 % INTERFACE SYSTEM RDW-STDEV 42.6 37.1 - 48.7 fL INTERFACE SYSTEM PLATELETS 164 140 - 350 K/uL INTERFACE SYSTEM MPV 12.0 9.3 - 12.4 fL INTERFACE SYSTEM 07/22/2005 12:2 9 PM ASP WEB DEVELOPER Nu Whitley MD HEMATOLOGY ORDERABLES Final R esult Performing Organization Address City/[facility] Co de Phone Number INTERFACE SYSTEM Refer to clinic/hospital department * COMPREHENSIVE METABOLIC PANEL (07/22/2005 12:29 PM ASP WEB DEVELOPER) GLUCOSE 94 65 - 109 mg/dL INTERFACE SYSTEM CREATININE 0.6 0.4 - 1.2 mg/dL INTERFACE SYSTEM CALCIUM 9.7 8.6 - 10.2 mg/dL INTERFACE SYSTEM AST 17 12 - 32 U/L INTERFACE SYSTEM ALKALINE PHOSPHATASE 94 35 - 104 U/L INTERFACE SYSTEM BILIRUBIN TOTAL 0.4 0.2 - 1.0 mg/dL INTERFACE SYSTEM ALBUMIN 4.5 3.4 - 4.8 g/dL INTERFACE SYSTEM TOTAL PROTEIN 7.8 6.3 - 8.6 g/dL INTERFACE SYSTEM ALT 13 0 - 31 U/L INTERFACE SYSTEM BUN 12 6 - 20 mg/dL INTERFACE SYSTEM SODIUM 138 135 - 145 mmol/L INTERFACE SYSTEM POTASSIUM 3.6 3.5 - 4.9 mmol/L INTERFACE SYSTEM CHLORIDE 102 96 - 108 mmol/L INTERFACE SYSTEM CO2 28 22 - 30 mmol/L INTERFACE SYSTEM 07/22/2005 12:2 9 PM ASP WEB DEVELOPER us Nu Whitley MD CHEMISTRY ORDERABLES Final Re sult INTERFACE SYSTEM Refer to clinic/hospital department documented in this encounter Visit Diagnoses Diagnosis Encounter for long-term (current) use of other medications- Primary documented in this encounter Care Teams Meal Packer Relationship Specialty Start Date End Date Juli Acuna MD [address] [address] PCP - General 05/18/15 documented as of this encounter
--- OUTSIDE RECORDS SUMMARY | 2025-02-07 13:30 | XMS_ITS | Clinical Summary ---
Author Organization [facility] Address [address] [facility] [place] [address] Care Team Providers Care Weigher Operator Name Role Phone Chanel Duque NP Primary Care Provider [phone] Allergies No known active allergies Medications sertraline (ZOLOFT) 50 mg tablet daily. Active spironolactone- hydroCHLOROthia zide (ALDACTAZIDE) 25-25 mg per tablet TAKE 1 TABLET BY MOUTH EVERY DAY 90 tablet 1 Active lisinopriL (PRINIVIL,ZESTR IL) 20 mg tablet TAKE 1 TABLET BY MOUTH EVERY DAY 90 tablet 1 Active cholecalciferol (VITAMIN D-3) 25 mcg (1,000 unit) tablet Take 1 tablet (1,000 Units total) by mouth daily Active ALPRAZolam (XANAX) 0.5 mg tablet Take 1 tablet (0.5 mg total) by mouth nightly as needed for anxiety TAKE 1/2 TABLET OF 0.5 MG BY MOUTH EVERY DAY NEEDED 30 tablet 3 Active tirzepatide (MOUNJARO) 5 mg/0.5 mL pen injector Inject 5 mg under the skin every 7 days Patient is using a compounded version of this that provides 2.5-5.0 mg weekly Active dalfampridine 10 mg tablet extended release 12 hrIndications:M ultiple sclerosis (HCC) TAKE 1 TABLET BY MOUTH 2 TIMES A DAY 180 tablet 3 5 Active Vumerity 231 mg capsule,delayed release(/EC)I ndications:Mult iple sclerosis (HCC) TAKE 2 CAPSULES BY MOUTH 2 TIMES A DAY 360 capsule 2 5 Active progesterone (PROMETRIUM) 100 mg capsule Take 1 capsule (100 mg total) by mouth daily 5 Active baclofen (LIORESAL) 10 mg tablet Take 1 tablet (10 mg total) by mouth 3 (three) times a day 90 tablet 5 Active tiZANidine (ZANAFLEX) 4 mg tablet TAKE 1 TABLET BY MOUTH 3 TIMES A DAY USUALLY TAKES IS AT BEDTIME AND OCCASIONALLY DURING THE NIGHT 270 tablet 3 5 Active Active Problems Problem Noted Date Diagnosed Date 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 Betaseron: 1993 x months; 08/1995 -08/2014 2. Plegridy: 08/2014-05/2020 scarring and injection fatigue 3. Vumerity:06/2020- Assessment & Plan (11/18/2024 4:00 PM CDT): The patient is presenting for follow up of multiple sclerosis. She reports that since her last visit she has not noticed any definitively new symptoms. She has a longstanding right lower extremity weakness for which she uses a cane which she implemented roughly a year and a half ago. She has also been using a Cionic nerve sleeve which gives her some benefit. She takes tizanidine 4 mg nightly to help with muscle spasms and dalfampridine twice daily to help with functionality. She receives bladder Botox injections which has provided some benefit and allowed her to stop Ditropan and Myrbetriq although the improvement overall has been minimal. Her neurological exam is notable for some right lower extremity weakness and gait instability. We discussed ongoing management of multiple sclerosis. Given the lack of new clinical symptoms or changes on her MRI I suspect she is stable from a disease standpoint. We discussed symptoms of progression and how this can continue to cause issues despite treatment. I will obtain blood work today to assess tolerability to the Vumerity. The patient has anxiety surrounding MRI scans and so we will hold off until there is a strong indication to get an updated MRI scan. I will trial the patient on baclofen 10 mg 3 times daily to see if this helps with gait and muscle spasms. I counseled her taking a place of the tizanidine. I will continue the patient on dalfampridine and Xanax as needed for anxiety. I will see the patient back in follow up and instructed her to reach out if any questions arise before next visit. Dyslipidemia 10/13/2016 Assessment & Plan (11/28/2019 3:19 PM CDT): Encouraged to watch diet and to increase exercise. Increased body mass index (BMI) 09/18/2014 Hypercholesterolemia 03/10/2013 Essential hypertension 03/10/2013 Assessment & Plan (11/28/2019 3:19 PM CDT): Blood pressure is under excellent control. Will continue current medications and lifestyle modifications. Assessment & Plan (12/12/2018 3:45 PM CDT): Blood pressure is under good control. No changes in meds. Continue lifestyle modifications. Continue to work on weight loss. Assessment & Plan (11/02/2017 11:03 AM CDT): Hypertension is . Blood pressure will be reassessed . Encounters Date Type Department Care Team Description 11/21/2024 Telephone [facility] Care [address] [place] [address] [address], [place] [phone] Zenaida Mueller LPN LTD Paperwork 11/18/2024 4:10 PM CDT Lab [address] [place] [address] Multiple sclerosis (HCC) 11/18/2024 3:00 PM CDT Office Visit [facility] [address] [place] [address] [address] [place] [phone] Agustín Hartman MD Multiple sclerosis (HCC) (Primary Dx) 11/15/2024 12:00 PM CDT Therapy [facility] Physical Therapy [address] [place] [address] Ana Bang PT Multiple sclerosis (HCC) (Primary Dx); Gait disturbance; Posture imbalance; Balance problem from Last 3 Months Immunizations Immunization Administration Dates Next Due Moderna SARS-CoV-2 Monovalent Vaccination (12+ Y RS) 08/20/2020,07/18/2020 Surgical History Surgery Date Site/Laterality Comments HAND SURGERY Left TIBIA FRACTURE SURGERY Left Medical History Medical History Date Comments MS (multiple sclerosis) Neurogenic bladder Family History Medical History Relation Name Comments No Known Problems Brother No Known Problems Father No Known Problems Mother No Known Problems Sister Relation Name Status Comments Brother Father Mother Sister Social History Tobacco Use Types Packs/Day Years Used Date Smoking Tobacco: Never Smokeless Tobacco: Never Tobacco Cessation:Counseling Given: Not Answered AUDIT-C Answer Date Recorded Q1: How often do you have a drink containing alc ohol? Monthly or less 06/16/2024 Q2: How many drinks containi ng alcohol do you have on a typical day when you are drinking? 1 or 2 06/16/2024 Q3: How often do you have si x or more drinks on one occasion? Never 06/16/2024 Personal Safety Answer Date Recorded Have you ever been in or are you currently in a harmful physical or emotional relationship or is someone making you feel afraid or unsafe? Denies 06/16/2024 Comments No Sex and Gender Information Value Date Recorded Sex Assigned at Not on file Legal Sex Female 8:23 PM PAINT LABORATORY TECHNICIAN Gender Identity Female 09/21/2017 11:14 AM CDT Sexual Orientation Straight 11/21/2019 1: 12 PM CDT Obstetrics History Last Filed Vital Signs Vital Sign Reading Time Taken Comments Blood Pressure 112/84 11/18/2024 3:05 PM CDT Pulse 77 11/18/2024 3:05 PM CDT Temperature 36.6 C (97.9 F) 06/16/2024 1:28 PM PAINT LABORATORY TECHNICIAN Respiratory Rate 21 06/16/2024 2:20 PM PAINT LABORATORY TECHNICIAN Oxygen Saturation 98% 11/18/2024 3:05 PM CDT Inhaled Oxygen Concentration - - Weight 84 kg (185 lb 1.6 oz) 11/18/2024 3:05 PM CDT Height 172.7 cm (5' 8) 11/18/2024 3:05 PM CDT Body Mass Index 28.14 11/18/2024 3:05 PM CDT Plan of Treatment Health Maintenance Due Date Last Done Comments Breast Cancer Screening-Mammogram 1968 Cervical Cancer Screening 1968 Colon Cancer Screening-Colonoscopy 1968 Depression Screening 1968 Hepatitis C Screening 1968 DTaP/Tdap/Td Vaccine (1 - Tdap) 02/10/1979 Hepatitis B Screening 02/10/1986 Regular Well Visit/Exam 18-64 02/10/1986 Zoster Vaccine (1 of 2) 02/10/2018 Covid-19 Vaccine (4 - 2024-2 6 season) 2025 05/02/2021, 08/20/2020, 07/18/2020 Influenza Vaccine (#1) 2025 Pneumococcal vaccine <65 Aged Out No longer eligible based on patient's age to complete this topic Medical Devices Implanted Type Area Boxer Operator Device Identifier Shelf Expiration Date Model / Serial / Lot Left Wrist Internal Fixator Screws Other - see comments Left: Hand Left Distal Femoral Screws Other - see comments Left: Femur Procedures Procedure Name Priority Date/Time Associated Diagnosis Comments EGFR Routine 11/18/2024 4:13 PM CDT Multiple sclerosis (HCC) DIFFERENTIAL AUTO Routine 11/18/2024 4:1 3 PM CDT Multiple sclerosis (HCC) CBC WITH AUTO DIFFERENTIAL Routine 11/18/2024 4:13 PM CDT Multiple sclerosis (HCC) COMPREHENSIVE METABOLIC PANEL Routine 11/18/2024 4:13 PM CDT Multiple sclerosis (HCC) from Last 3 Months Results * eGFR (11/18/2024 4:13 PM CDT) eGFR >90 >=60 mL/min/1. 73 m2 Comment: Interpretive Data Reference Interval Normal >/= 90 mL/min/1.73m2 Mildly decreased* 60 - 89 mL/min/1.73m2 Mildly to moderately decreased 45 - 59 mL/min/1.73m2 Moderately to severely decreased 30 - 44 mL/min/1.73m2 Severely decreased 15 - 29 mL/min/1.73m2 Kidney Failure < 15 mL/min/1.73m2 *Relative to young adult level Estimated glomerular filtration rate is determined by the 2020 CKD-EPI equation recommended by the National Kidney Foundation (A Unifying Approach to GFR Estimation: Recommendations of the NKF-ASK Task Force on Reassessing the Inclusion of Race in Diagnosing Kidney Disease, JASN 2020). The CKD-EPI equation should not be used for patients with unstable renal function and has not been validated in children and those over 70. Current interpretive data was last reviewed 2021. Blood 11/18/2024 4:13 PM CDT 11/18/2024 5:46 PM CDT us Agustín Hartman MD LAB BLOOD ORDERABLES Final Result [facility] [address] Department [place] [address] * Differential, auto (11/18/2024 4:13 PM CDT) Neutrophil abs 3.98 1.50 - 6.50 K/cumm Imm gran abs 0.03 0.00 - 0.10 K/cumm [facility] Lymphocyte abs 1.46 0.80 - 3.30 K/cumm [facility] Monocyte abs 0.44 0.20 - 0.80 K/cumm [facility] Eosinophil abs 0.07 0.00 - 0.50 K/cumm [facility] Basophil abs 0.06 0.00 - 0.10 K/cumm [facility] Neutrophil pct 65.8 % [facility] Comment: Interpretive Data Percent cell count reference ranges are not reported, since discordance with absolute values may lead to misinterpretation of CBC data. Current Interpretive Data was last revised on 2017. Imm gran pct 0.5 % [facility] Comment: Interpretive Data Percent cell count reference ranges are not reported, since discordance with absolute values may lead to misinterpretation of CBC data. Current Interpretive Data was last revised on 2017. Lymphocyte pct 24.2 % [facility] Comment: Interpretive Data Percent cell count reference ranges are not reported, since discordance with absolute values may lead to misinterpretation of CBC data. Current Interpretive Data was last revised on 2017. Monocyte pct 7.3 % [facility] Comment: Interpretive Data Percent cell count reference ranges are not reported, since discordance with absolute values may lead to misinterpretation of CBC data. Current Interpretive Data was last revised on 2017. Eosinophil pct 1.2 % [facility] Comment: Interpretive Data Percent cell count reference ranges are not reported, since discordance with absolute values may lead to misinterpretation of CBC data. Current Interpretive Data was last revised on 2017. Basophil pct 1.0 % [facility] Comment: Interpretive Data Percent cell count reference ranges are not reported, since discordance with absolute values may lead to misinterpretation of CBC data. Current Interpretive Data was last revised on 2017. Blood 11/18/2024 4:13 PM CDT 11/18/2024 5:46 PM CDT us Agustín Hartman MD LAB BLOOD ORDERABLES Final Result [facility] [address] Department of Laboratories [place], [place] [id number] * (ABNORMAL) CBC with auto differential (11/18/2024 4:13 PM CDT) WBC 6.04 3.80 - 9.90 K/cumm Hgb 13.7 11.9 - 15.5 g/dL [facility] Hct 42.5 35.6 - 45.5 % [facility] Plt 178 150 - 400 K/cumm [facility] MPV 12.5(H) 9.1 - 12.3 fL [facility] RBC 4.83 3.90 - 5.20 M/cumm [facility] MCV 88.0 81.3 - 96.4 fL [facility] MCH 28.4 27.1 - 33.3 pg [facility] MCHC 32.2(L) 32.3 - 35.7 g/dL [facility] RDW CV 13.7 11.1 - 14.9 % [facility] RDW SD 44.0 35.7 - 48.1 fL [facility] NRBC abs 0.00 0.00 - 0.01 K/cumm [facility] Blood 11/18/2024 4:13 PM CDT 11/18/2024 5:46 PM CDT Agustín Hartman MD LAB BLOOD ORDERABLES Final Result [facility] [address] Department [place] [address] * (ABNORMAL) Comprehensive metabolic panel (11/18/2024 4:13 PM CDT) Sodium 141 135 - 145 mmol/L Potassium, pl 3.7 3.3 - 4.9 mmol/L [facility] Chloride 101 97 - 110 mmol/L [facility] CO2 26 22 - 32 mmol/L [facility] Anion gap 14 2 - 15 mmol/L [facility] BUN 18 6 - 25 mg/dL [facility] Creatinine 0.49(L) 0.60 - 1.10 mg/dL [facility] Glucose 85 70 - 199 mg/dL [facility] Comment: Interpretive Data Fasting glucose >/= 126 mg/dl is diagnostic for diabetes. Fasting is defined as no caloric intake for at least 8 hours. Fasting glucose between 100 mg/dl to 125 mg/dl is diagnostic of prediabetes. In a patient with classic symptoms of hyperglycemia or hyperglycemic crisis, a random glucose >/= 200 mg/dl is diagnostic for diabetes. In the absence of unequivocal hyperglycemia, results should be confirmed by repeat testing. The classification and Diagnosis of Diabetes Diabetes Care 202; 46: S19-S40. Current interpretive data was last revised 2022. Calcium 10.1 8.5 - 10.3 mg/dL [facility] Bilirubin, total 0.4 0.1 - 1.2 mg/dL [facility] Protein, pl 7.4 6.5 - 8.5 g/dL [facility] Albumin 4.8 3.5 - 5.0 g/dL [facility] Alk phos 97 40 - 130 Units/L [facility] ALT 17 7 - 45 Units/L [facility] AST 18 10 - 45 Units/L [facility] Blood 11/18/2024 4:13 PM CDT 11/18/2024 5:46 PM CDT Agustín Hartman MD LAB BLOOD ORDERABLES Final Result [facility] [address] [place] [address] from Last [address] [facility] [id number] [facility] [id number] Care Teams Weigher Operator Relationship Specialty Start Date End Date Chanel Duque NP [facility] [place] [address] PCP - General Nurse Practitioner 04/20/24
--- OUTSIDE RECORDS SUMMARY | 2025-02-07 13:30 | XMS_ITS | Encounter Summary ---
Author Organization [employer] Address [address] [place] [address] Care Team Providers Care Manufacturing Industrial Engineer Name Role Phone Juli Acuna MD Primary Care Provider [phone] Encounter Details Date Type Department Care Team (Late st Contact Info) Description 07/10/1999 Outpatient Historical [facility] [facility] [address] [address] Nu Whitley MD [address] [facility] [address] [place] [address] Social History Tobacco Use Types Packs/Day Years Used Date Smoking Tobacco: Never Assessed Comments Unknown Sex and Gender Information Value Date Recorded Sex Assigned at Not on file Legal Sex Female 2:52 AM HEALTH DIAGNOSTICS TEACHER Gender Identity Not on file Sexual Orientation Not on file documented as of this encounter Plan of Treatment Not on file documented as of this encounter Visit Diagnoses Not on filedocumented in this encounter Care Teams Manufacturing Industrial Engineer Relationship Specialty Start Date End Date Juli Acuna MD [address] [facility] [address] [place] [phone] PCP - General 05/18/15 documented as of this encounter
--- OUTSIDE RECORDS SUMMARY | 2025-02-07 13:30 | XMS_ITS | Encounter Summary ---
Author Organization [employer] Address [address] [place] [address] Care Team Providers Care Title Manager Name Role Phone Juli Acuna MD Primary Care Provider [phone]- [phone] Encounter Details Date Type Department Care Team (Late st Contact Info) Description 07/22/2005 Outpatient [facility] Division [facility] [address] [facility] [address] [address] Nu Whitley MD [address] [facility] [address] [place] [address] Social History Tobacco Use Types Packs/Day Years Used Date Smoking Tobacco: Never Assessed Comments Unknown Sex and Gender Information Value Date Recorded Sex Assigned at Not on file Legal Sex Female 2:52 AM CARD PUNCHER Gender Identity Not on file Sexual Orientation Not on file documented as of this encounter Plan of Treatment Not on file documented as of this encounter Visit Diagnoses Not on filedocumented in this encounter Care Teams Title Manager Relationship Specialty Start Date End Date Juli Acuna MD [address] [facility] [address] [place] [phone] PCP - General 05/18/15 documented as of this encounter
--- OUTSIDE RECORDS SUMMARY | 2025-02-07 13:30 | XMS_ITS | Encounter Summary ---
Author Organization [employer] Address [address] [place] [address] Care Team Providers Care Heavy Equipment Plumbing Supervisor Name Role Phone Juli Acuna MD Primary Care Provider [phone]- [phone] Encounter Details Date Type Department Care Team (Late st Contact Info) Description 09/13/2008 Outpatient Historical [facility] Services [facility] - [facility] [address] 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
--- OUTSIDE RECORDS SUMMARY | 2025-02-07 13:30 | XMS_ITS | Clinical Summary ---
Author Organization [facility] [employer] Address [address] [place] [address] Care Team Providers Care Dive Master Name Role Phone Chanel Duque MERLINE-TURFGRASS MANAGEMENT PROFESSOR Primary Care Provider + Source Comments [facility],non-owned Affiliates and Associated Physician Practices is amultiple site organization consisting of ambulatory clinics and hospital sitesin [place], [place], [place] and [place]. This disclosure is being madepursuant to the Care Everywhere program and may not contain all information available regarding this patient. Last updated 18.[facility] [employer] Social History Tobacco Use Types Packs/Day Years Used Date Smoking Tobacco: Never Assessed Comments Unknown Sex and Gender Information Value Date Recorded Sex Assigned at Not on file Legal Sex Female 8:52 AM CDT Gender Identity Not on file Sexual Orientation Not on file Plan of Treatment Health Maintenance Due Date Last Done Comments COLOGUARD (AGES 45-75) - COL ON CA SCREENING 1968 COLON MONITORING 1968 COLONOSCOPY - COLON CA SCREENING 1968 CT COLONOGRAPHY - COLON CA SCREENING 1968 Colorectal Cancer Screening 1968 FIT - COLON CA SCREENING 1968 FLEX SIG - COLON CA SCREENING 1968 LIPID TESTING 1968 MAMMOGRAM 1968 HIV SCREENING 02/10/1983 HEPATITIS C SCREENING 02/06/1986 DTAP/TDAP/TD VACCINES (1 - Tdap) 02/10/1987 HEPATITIS B VACCINE (1 of 3 - 19+ 3-dose series) 02/10/1987 PNEUMOCOCCAL VACCINE 50+ (1 of 1 - PCV) 02/10/2018 ZOSTER VACCINE (1 of 2) 02/10/2018 COVID-19 VACCINE (3 - 2023-2 5 season) 2024 08/20/2020, 07/18/2020 DEPRESSION SCREENING 06/01/2024 INFLUENZA VACCINE (#1) 2025 PAP SMEAR 07/22/2025 07/22/2022 HIB VACCINE Aged Out No longer eligi ble based on patient's age to complete this topic HPV VACCINE Aged Out No longer eligi ble based on patient's age to complete this topic MENINGOCOCCAL (Group B) VACCINE SHARED DECISION-MAKING Aged Out No longer eligible based on patient's age to complete this topic MENINGOCOCCAL GROUPS A/C/Y/W VACCINE Aged Out No longer eligible b ased on patient's age to complete this topic Insurance [employer] Member Subscriber Plan / Payer (Ef fective for All Dates) Name:Refugio Caruso Member ID:[id number] Relation to Subscriber:Self Name:REFUGIO CARUSO Subscriber ID:[id number] Payer ID:Not on file Type:O Address: [place] [phone] [employer] Member Subscriber Plan / Payer (Ef fective 2020-Present) Name:Refugio Caruso Member ID:[id number] Relation to Subscriber:Self Name:REFUGIO CARUSO Subscriber ID:[id number] Payer ID:Not on file Type:O Address: [place] [phone] [employer] Care Teams Dive Master Relationship Specialty Start Date End Date Chanel Duque APRN-CNP [address] [address] PCP - General 01/15/21
--- OUTSIDE RECORDS SUMMARY | 2025-02-07 13:30 | XMS_ITS | Encounter Summary ---
Author Organization [employer] [facility] Address [address] [place] [address] Care Team Providers Care [place] P[employer] Name Role Phone Juli Acuna MD Primary Care Provider [phone]- [phone] Encounter Details Date Type Department Care Team (Latest Contact Info) Description 07/03/[address] 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 Gender Identity Not on file Sexual Orientation Not on file documented as of this encounter Plan of Treatment Not on file documented as of this encounter Procedures Procedure Name Priority Date/Time Associated Diagnosis Comments CBC WITH DIFFERENTIAL Routine 07/03/2004 1:00 PM TRAVEL SPECIALIST CBC WITH DIFFERENTIAL Routine 07/03/2004 1:00 PM TRAVEL SPECIALIST COMPREHENSIVE METABOLIC PANEL Routine 07/03/2004 1:00 PM TRAVEL SPECIALIST documented in this encounter Results * (ABNORMAL) CBC WITH DIFFERENTIAL (07/03/2004 1:00 PM TRAVEL SPECIALIST) NEUTROPHILS 75(H) 45 - 70 % INTERFAC E SYSTEM LYMPHOCYTES 20 16 - 45 % INTERFAC E SYSTEM MONOCYTES 5 3 - 13 % INTERFACE SYSTEM EOSINOPHILS 1 0 - 7 % INTERFAC E SYSTEM BASOPHILS 0 0 - 2 % INTERFACE SYSTEM NEUTROPHIL ABSOLUTE 4.83 1.90 - 7.00 K/uL INTERFACE SYSTEM LYMPHOCYTE ABSOLUTE 1.29 0.70 - 4.50 K/uL INTERFACE SYSTEM MONOCYTE ABSOLUTE 0.32 0.10 - 1.30 K/uL INTERFACE SYSTEM EOSINOPHIL ABSOLUTE 0.03 0.00 - 0.70 K/uL INTERFACE SYSTEM BASOPHILS ABSOLUTE 0.01 0.00 - 0.20 K/uL INTERFACE SYSTEM 07/03/2004 1:00 PM TRAVEL SPECIALIST Nu Whitley MD HEMATOLOGY ORDERABLES Final R esult Performing Organization Address City/[facility] Co de Phone Number INTERFACE SYSTEM Refer to clinic/hospital department * CBC WITH DIFFERENTIAL (07/03/2004 1:00 PM TRAVEL SPECIALIST) WBC 6.5 4.0 - 9.8 K/uL INTERFACE SYSTEM RBC 4.81 3.90 - 4.90 M/uL INTERFACE SYSTEM HEMOGLOBIN 13.3 11.8 - 14.8 g/dL INTERFACE SYSTEM HEMATOCRIT 40.0 35.5 - 44.0 % INTERFACE SYSTEM MCV 83.2 82.0 - 99.0 fL INTERFACE SYSTEM MCH 27.7 27.2 - 32.6 pg INTERFACE SYSTEM MCHC 33.3 31.5 - 35.5 % INTERFACE SYSTEM RDW 13.8 11.5 - 14.5 % INTERFACE SYSTEM RDW-STDEV 42.1 37.1 - 48.7 fL INTERFACE SYSTEM PLATELETS 152 140 - 350 K/uL INTERFACE SYSTEM MPV 12.1 9.3 - 12.4 fL INTERFACE SYSTEM 07/03/2004 1:00 PM TRAVEL SPECIALIST Nu Whitley MD HEMATOLOGY ORDERABLES Final R esult Performing Organization Address City/[facility] Co de Phone Number INTERFACE SYSTEM Refer to clinic/hospital department * (ABNORMAL) COMPREHENSIVE METABOLIC PANEL (07/03/2004 1:00 PM TRAVEL SPECIALIST) GLUCOSE 111(H) 65 - 109 mg/dL INTERFACE SYSTEM CREATININE 0.6 0.4 - 1.2 mg/dL INTERFACE SYSTEM CALCIUM 9.3 8.6 - 10.2 mg/dL INTERFACE SYSTEM AST 12 12 - 32 U/L INTERFACE SYSTEM ALKALINE PHOSPHATASE 91 35 - 104 U/L INTERFACE SYSTEM BUN 11 6 - 20 mg/dL INTERFACE SYSTEM BILIRUBIN TOTAL 0.5 0.2 - 1.0 mg/dL INTERFACE SYSTEM ALBUMIN 4.6 3.4 - 4.8 g/dL INTERFACE SYSTEM TOTAL PROTEIN 7.8 6.3 - 8.6 g/dL INTERFACE SYSTEM ALT 11 0 - 31 U/L INTERFACE SYSTEM SODIUM 137 135 - 145 mmol/L INTERFACE SYSTEM POTASSIUM 3.5 3.5 - 4.9 mmol/L INTERFACE SYSTEM CHLORIDE 102 96 - 108 mmol/L INTERFACE SYSTEM CO2 27 22 - 30 mmol/L INTERFACE SYSTEM 07/03/2004 1:00 PM TRAVEL SPECIALIST us Nu Whitley MD CHEMISTRY ORDERABLES Final Re sult INTERFACE SYSTEM Refer to clinic/hospital department documented in this encounter Visit Diagnoses Diagnosis Multiple sclerosis (CMS/HCC)- Primary Multiple sclerosis documented in this encounter Care Teams [place] [employer] Relationship Specialty Start Date End Date Juli Acuna MD [address] [place] [id number] PCP - General 05/18/15 documented as of this encounter
== END 2025-02-07 11:45 | disposition home or self-care (01) ==
LOC: CHSIMG 11:46
PROVIDERS: PCP Nurse Practitioner Adult Health; Visit Provider Nurse Practitioner Adult Health
DX: Z12.31 Encounter for screening mammogram for malignant neoplasm of breast (principal)
CPT/HCPCS: 77063; 77067